=== PATIENT | female | born 1965 | race Caucasian/White ===

== ENCOUNTER 2016-05-13 04:37 | Inpatient (IN) | payer MEDICAID ==
[2016-05-13] MEDS ORDERED: ASPIRIN 81 MG CHEW TAB ONE (07:05)
[2016-05-13] MEDS ORDERED: SALINE FLUSH 10 ML FLUSH PRN (08:25)
[2016-05-13] MEDS ORDERED: GLUCAGON 1 MG VIAL IM PRN (08:25)
[2016-05-13] MEDS ORDERED: DEXTROSE 50% SYRINGE 50 ML IV PRN (08:25)
[2016-05-13] MEDS ORDERED: ACETAMINOPHEN 325 MG TAB PO PRN (08:25)
[2016-05-13 08:38] VITALS: BP_SYST 127; BP_SYST 132; RESP 18; TEMP 98.9
[2016-05-13] MEDS: CHOLECALCIFEROL 1,000 UNITS TAB PO SCH (09:35)
[2016-05-13] MEDS: PRAMIPEXOLE 0.5 MG TAB PO SCH ×2 (09:35→20:10)
[2016-05-13] MEDS: BUSPIRONE HCL 15 MG TAB PO SCH ×4 (09:36→20:11)
[2016-05-13] MEDS: GABAPENTIN 400 MG CAP PO SCH ×4 (09:36→20:10)
[2016-05-13] MEDS: LEVEMIR INSULIN SUBQ SCH ×2 (09:41→20:14)
[2016-05-13] MEDS: Aspirin 325 MG TAB PO SCH (09:41)
[2016-05-13 10:31] VITALS: BP_SYST 100; BP_SYST 95; RESP 19; TEMP 99.1
[2016-05-13] MEDS: MDI-SPIRIVA 5 DOSES INH SCH (11:04)
[2016-05-13 11:05] VITALS: RESP 20
[2016-05-13 13:03] VITALS: BP_SYST 170; RESP 18; TEMP 98.6
[2016-05-13 17:42] VITALS: Wt 108.7 kg
[2016-05-13 19:44] VITALS: BP_SYST 111; RESP 16; TEMP 98.3
[2016-05-13] MEDS: SALINE FLUSH 10 ML FLUSH SCH (20:10)
[2016-05-13] MEDS: VENLAFAXINE XR 150 MG CAP PO SCH (20:10)
[2016-05-13] MEDS: AMITRIPTYLINE 100 MG TAB PO SCH (20:11)
[2016-05-13] MEDS: Atorvastatin 20 MG TAB PO SCH (20:11)
[2016-05-13 20:59] VITALS: BP_SYST 121
[2016-05-14] VITALS (9 sets, daily range): BP systolic 107–149; RESP 16–20; TEMP 97.8–99.3
[2016-05-14] MEDS: SODIUM CHLORIDE 0.9% FLUSH BAG 500 ML IV SCH (06:00)
[2016-05-14] MEDS: MDI-SPIRIVA 5 DOSES INH SCH (07:53)
[2016-05-14] MEDS: BUSPIRONE HCL 15 MG TAB PO SCH ×5 (08:19→20:09)
[2016-05-14] MEDS: CHOLECALCIFEROL 1,000 UNITS TAB PO SCH (08:19)
[2016-05-14] MEDS: GABAPENTIN 400 MG CAP PO SCH ×4 (08:19→20:10)
[2016-05-14] MEDS: Aspirin 325 MG TAB PO SCH (08:19)
[2016-05-14] MEDS: PRAMIPEXOLE 0.5 MG TAB PO SCH ×2 (08:19→20:10)
[2016-05-14] MEDS: SALINE FLUSH 10 ML FLUSH SCH ×2 (08:20→19:40)
[2016-05-14] MEDS: LEVEMIR INSULIN SUBQ SCH ×2 (08:20→20:18)
[2016-05-14] MEDS ORDERED: MISSING DOSE XX ONE (09:15)
[2016-05-14] MEDS: AMITRIPTYLINE 100 MG TAB PO SCH (20:09)
[2016-05-14] MEDS: Atorvastatin 20 MG TAB PO SCH (20:09)
[2016-05-14] MEDS: VENLAFAXINE XR 150 MG CAP PO SCH (20:10)
[2016-05-14] MEDS: hydrOXYzine PAM 50 MG CAP PO PRN (21:40)
[2016-05-14] MEDS ORDERED: TEMAZEPAM 15 MG CAP PO ONE (22:00)
[2016-05-15 00:30] VITALS: BP_SYST 135; BP_SYST 141; RESP 16; TEMP 98
[2016-05-15 04:21] VITALS: BP_SYST 120; RESP 18; TEMP 98.8
[2016-05-15] MEDS: hydrOXYzine PAM 50 MG CAP PO PRN ×2 (04:26→09:22)
[2016-05-15] MEDS ORDERED: TEMAZEPAM 15 MG CAP ONE (05:21)
[2016-05-15] MEDS: SODIUM CHLORIDE 0.9% FLUSH BAG 500 ML IV SCH (05:24)
[2016-05-15] MEDS: MDI-SPIRIVA 5 DOSES INH SCH (07:34)
[2016-05-15 07:40] VITALS: BP_SYST 141; RESP 20; TEMP 98.1
[2016-05-15] MEDS ORDERED: LEVEMIR INSULIN SUBQ SCH (08:00)
[2016-05-15] MEDS: CHOLECALCIFEROL 1,000 UNITS TAB PO SCH (08:05)
[2016-05-15] MEDS: Aspirin 325 MG TAB PO SCH (08:05)
[2016-05-15] MEDS: SALINE FLUSH 10 ML FLUSH SCH (08:05)
[2016-05-15] MEDS: PRAMIPEXOLE 0.5 MG TAB PO SCH (08:05)
[2016-05-15] MEDS: GABAPENTIN 400 MG CAP PO SCH ×2 (08:06→12:08)
[2016-05-15] MEDS: BUSPIRONE HCL 15 MG TAB PO SCH ×2 (08:06→12:08)
[2016-05-15] MEDS ORDERED: METOPROLOL XL 25 MG TAB PO SCH (09:00)
[2016-05-15 11:19] VITALS: BP_SYST 132; RESP 20; TEMP 97.6
[2016-05-15 14:40] VITALS: BP_SYST 132; RESP 20; TEMP 97.6
== END 2016-05-15 16:02 | disposition home or self-care (01) | DRG 69 ==
LOC: ENRESERVTM → ENRESERVDT → ENRESERV → ER 04:37 → EMR 06:44 → ENPENDDIS 06:44 → OBSVTOIN 06:44 → PCU2 07:45 → OBSVTOIN 05-15 10:25 → INTOOBSV 05-15 10:25
PROVIDERS: ADMIT Family Medicine Addiction Medicine; ATTEND Family Medicine Addiction Medicine
DX: G45.9 Transient cerebral ischemic attack, unspecified (principal); E11.40 Type 2 diabetes mellitus with diabetic neuropathy, unspecified; E11.65 Type 2 diabetes mellitus with hyperglycemia; Z68.41 Body mass index [BMI] 40.0-44.9, adult; I07.1 Rheumatic tricuspid insufficiency; I69.351 Hemiplegia and hemiparesis following cerebral infarction affecting right dominant side; Z79.4 Long term (current) use of insulin; E66.01 Morbid (severe) obesity due to excess calories; I10 Essential (primary) hypertension; F41.9 Anxiety disorder, unspecified; F32.9 Major depressive disorder, single episode, unspecified; F17.210 Nicotine dependence, cigarettes, uncomplicated; M47.9 Spondylosis, unspecified; E78.5 Hyperlipidemia, unspecified; Z79.82 Long term (current) use of aspirin
CPT/HCPCS: 36415; 70450; 70551; 71010; 72141; 80048; 80053; 80061; 82553; 82947; 84484; 85025; 85384; 85610; 85730; 93005; 93306; 94640; 94799; 95819; 99223; 99233; 99239